=== PATIENT | female | born 1945 | race Caucasian/White ===

== ENCOUNTER 2024-07-19 07:55 | Emergency (ER) | payer MEDICARE ==
[2024-07-19 08:04] VITALS: RESP 18; TEMP 97.4
--- NOTE | 2024-07-19 08:33 | ED ---
General Adult HPI - General Chief complaint: Dizziness Stated complaint: Hypertension Time Seen by Provider: 07/19/24 08:18 Source: patient, RN notes reviewed, old records reviewed Mode of arrival: wheelchair Limitations: no limitations - History of Present Illness Initial comments: Patient is a 78-year-old female presents emergency department for lightheadedness and hypertension. States she took her blood pressure few times this morning with a wrist cuff. Twice that showed with systolics of 200. Once it showed systolic of 160. Patient states she felt lightheaded afterwards. Was up part of the night with anxiety over her dog. Presents for further evaluation at this time. No history of hypertension. History of anxiety. History of palpitations for which she is on propranolol. Also history of IBS. Denies chest pain but states she has been having intermittent chest sharp pains that last fleeting moments substernally that do not radiate. Currently no pain. No shortness of breath. Has been dealing with sinus pressure and mild headache for the last couple weeks that is unchanged from baseline. Describes her lightheadedness as a lightheaded feeling, not a room spinning sensation. Does have a history of vertigo and states this is not vertigo. States it was mild right now. Associated with upper respiratory infection which she is feeling improved regarding. Denies sore throat. Denies urinary complaints. Has no o ther acute complaints at this time. Presents over concern for the high blood pressure readings at home as well as her lightheadedness. - Related Data Previous Rx's Medication Instructions Recorded amLODIPine [Norvasc] 5 mg PO DAILY PRN 7 Days #7 tab 07/19/24 Allergies Allergy/AdvReac Type Severity Reaction Status Date / Time hydroxyzine [From Atarax] Allergy Unknown Verified 07/19/24 08:04 Iodinated Contrast Media Allergy Anaphylaxis Verified 07/19/24 08:04 Review of Systems ROS Statement: Those systems with pertinent positive or pertinent negative responses have been documented in the HPI. Review of Systems: CONST: Denies fever EYES: Denies blurry vision ENT: Denies nasal congestion C/V: Denies Chest pain RESP: Denies shortness of breath GI: Denies abdominal pain : Denies dysuria SKIN: Denies rash. MSK: Denies joint pain. NEURO: Endorses mild headache ROS Other: All systems not noted in ROS Statement are negative. Past Medical History Additional Past Medical History / Comment(s): episodes of racing heart beat, IBS, vertigo, History of Any Multi-Drug Resistant Organisms: None Reported Past Surgical History: No Surgical Hx Reported Past Psychological History: Anxiety Smoking Status: Former smoker Past Alcohol Use History: None Reported Past Drug Use History: None Reported General Exam - General Exam Comments Initial Comments: General: Appears in no acute distress. HEAD: Normal with no signs of head trauma. EYES: PERRLA, EOMI, conjunctiva normal, no discharge. Pupils are 2 mm and equal bilaterally. ENT: Hearing grossly intact, normal oropharynx. RESPIRATORY: Clear breath sounds bilaterally. No wheezes, rales, or rhonchi. C/V: Regular rate and rhythm. S1 and S2 auscultated, no edema, peripheral pulses 2+ and intact throughout ABD: Abd is soft, nontender, nondistended EXT: Normal range of motion, no obvious deformity SKIN: No rashes or lesions observed on exposed skin. NEURO: Alert and oriented x 4. NIH of 0. GCS 15. No focal neurological deficits. Normal cerebellar function as evidenced by normal [id number] testing, normal aimg-kn-klyi testing, absence of dysdiadochokinesia. Limitations: no limitations Course Vital Signs 07/19/24 07/19/24 08:00 08:16 Temperature 97.4 F L Pulse Rate 63 60 Respiratory 18 18 Rate Blood Pressure 162/72 149/70 O2 Sat by Pulse 100 99 Oximetry Medical Decision Making - Medical Decision Making Was pt. sent in by a medical professional or institution ([facility], PHYTOPATHOLOGY TEACHER, urgent care, hospital, or halfway...) When possible be specific @ -No Did you speak to anyone other than the patient for history (EMS, parent, family, police, friend...)? What history was obtained from this source @ -No Did you review nursing and triage notes (agree or disagree)? Why? @ -I reviewed and agree with nursing and triage notes Were old charts reviewed (outside hosp., previous admission, EMS record, old E KG, old radiological studies, urgent care reports/EKG's, halfway records)? Report findings @ -No old charts were reviewed Differential Diagnosis (chest pain, altered mental status, abdominal pain women, abdominal pain men, vaginal bleeding, weakness, fever, dyspnea, syncope, headache, dizziness, GI bleed, back pain, seizure, CVA, palpatations, mental health, musculoskeletal)? @ -Hypertension, anxiety, dehydration, viral syndrome, vertigo. This list is not all inclusive. EKG interpreted by me (3pts min.). @ -As above X-rays interpreted by me (1pt min.). @ -Chest x-ray reveals no obvious acute cardiopulmonary process. CT interpreted by me (1pt min.). @ -None done U/S interpreted by me (1pt. min.). @ -None done What testing was considered but not performed or refused? (CT, X-rays, U/S, labs)? Why? @ -None What meds were considered but not given or refused? Why? @ -None Did you discuss the management of the patient with other professionals (professionals i.e. , PA, PHYTOPATHOLOGY TEACHER, lab, RT, psych nurse, social work supervisor, emery wheel worker, teacher, radio electronics officer, rn field case manager)? Give summary @ -No Was smoking cessation discussed for >3mins.? @ -No Was critical care preformed (if so, how long)? @ -No Were there social determinants of health that impacted care today? How? (Homelessness, low income, unemployed, alcoholism, drug addiction, transportation, low edu. Level, literacy, decrease access to med. care, retirement, rehab)? @ -No Was there de-escalation of care discussed even if they declined (Discuss DNR or withdrawal of care, Hospice)? DNR status @ -No What co-morbidities impacted this encounter? (DM, HTN, Smoking, COPD, CAD, Cancer, CVA, ARF, Chemo, Hep., AIDS, mental health diagnosis, sleep apnea, morbid obesity)? @ -None Was patient admitted / discharged? Hospital course, mention meds given and route, prescriptions, significant lab abnormalities, going to OR and other pert inent info. @ -Based on patient's presentation and physical exam, presents with high blood pressure reading at home. She does use a wrist cuff which is less accurate and blood pressure readings here are within acceptable limits. Systolic slightly elevated. She has been having intermittent chest discomfort as well as viral syndrome symptoms for weeks. Discussed with the patient we will obtain a cardiac workup as well as screening for any dehydration or infection. No indication for CT brain imaging at this time as there is no injury and no neurological deficits. Does have a mild headache and she will be treated with IV Toradol as well as fluids. Patient was in agreement this plan. We did discuss the inaccuracy of the wrist blood pressure cuffs and I recommended she obtain an automatic arm blood pressure cuff. She expressed understanding. EKG shows no signs of acute ischemia. Chest x-ray unremarkable. Laboratory studies remarkable for undetectable troponin, normal urinalysis, normal TSH, normal viral swabs. I discussed results with patient. She has been monitored for multiple hours here in the department. Patient's blood pressure has over time, trended downward and improved. She is feeling improved. We discussed her workup. I believe it is safer to be discharged home. His systolic blood pressures have remained above 135 at a minimum, I do feel comfortable sending her home with a as needed antihypertensive medication, Norvasc 5 mg. Strict instructions on when to use including if systolic blood pressure is greater than 185 consistently over the course of a few blood pressure readings with the course of few hours at home. Stated that she needs to obtain an arm blood pressure cuff prior to initiating this therapy, as her wrist cuff is likely inaccurate. She was in agreement this plan. Recommend she follow-up with her PCP on Sunday. She can return to the ER if any worsening symptoms. She was in agreement this plan. Strict return precautions discussed. I will provide the patient with a prescription for amlodipine. I instructed the patient to follow up with their PCP in the next 1-3 days.. I explained that the patient should return to the emergency department if they experience any worsening symptoms. Strict return precautions were discussed with the patient. The patient expressed understanding of these instructions. I answered all questions that the patient had. The patient was discharged home in good condition with their prescriptions and follow up information. Undiagnosed new problem with uncertain prognosis? @ -No Drug Therapy requiring intensive monitoring for toxicity (Heparin, Nitro, Insulin, Cardizem)? @ -No Were any procedures done? @ -No Diagnosis/symptom? @ -Asymptomatic hypertension, anxiety Acute, or Chronic, or Acute on Chronic? @ -Acute Uncomplicated (without systemic symptoms) or Complicated (systemic symptoms)? @ -Uncomplicated Side effects of treatment? @ -None Exacerbation, Progression, or Severe Exacerbation] @ -No Poses a threat to life or bodily function? @ -Unlikely at this time - Lab Data Result diagrams: 07/19/24 08:42 07/19/24 08:42 Lab Results 07/19/24 07/19/24 07/19/24 Range/Units 08:42 08:42 08:42 WBC 5.9 (3.8-10.6) k/uL RBC 4.29 (3.80-5.40) m/uL Hgb 13.3 (11.4-16.0) gm/dL Hct 40.8 (34.0-46.0) % MCV 95.2 (80.0-100.0) fL MCH 31.1 (25.0-35.0) pg MCHC 32.7 (31.0-37.0) g/dL RDW 12.8 (11.5-15.5) % Plt Count 286 (150-450) k/uL MPV 8.8 Neutrophils % 53 % Lymphocytes % 37 % Monocytes % 6 % Eosinophils % 1 % Basophils % 0 % Neutrophils # 3.2 (1.3-7.7) k/uL Lymphocytes # 2.2 (1.0-4.8) k/uL Monocytes # 0.3 (0-1.0) k/uL Eosinophils # 0.1 (0-0.7) k/uL Basophils # 0.0 (0-0.2) k/uL Sodium 138 (137-145) mmol/L Potassium 4.2 (3.5-5.1) mmol/L Chloride 103 (98-107) mmol/L Carbon Dioxide 28 (22-30) mmol/L Anion Gap 7 mmol/L BUN 25 H (7-17) mg/dL Creatinine 0.69 (0.52-1.04) mg/dL Est GFR (CKD-EPI)AfAm >90 (>60 ml/min/1.73 sqM) Est GFR (CKD-EPI)NonAf 84 (>60 ml/min/1.73 sqM) Glucose 88 (74-99) mg/dL Calcium 9.3 (8.4-10.2) mg/dL Magnesium 1.9 (1.6-2.3) mg/dL Total Bilirubin 0.5 (0.2-1.3) mg/dL AST 25 (14-36) U/L ALT 16 (4-34) U/L Alkaline Phosphatase 49 (38-126) U/L Troponin I <0.012 (0.000-0.034) ng/mL Total Protein 6.7 (6.3-8.2) g/dL Albumin 4.0 (3.5-5.0) g/dL TSH 2.400 (0.465-4.680) mIU/L Urine Color Urine Appearance (Clear) Urine pH (5.0-8.0) Ur Specific [place] (1.001-1.035) Urine Protein (Negative) Urine Glucose (UA) (Negative) Urine Ketones (Negative) Urine Blood (Negative) Urine Nitrite (Negative) Urine Bilirubin (Negative) Urine Urobilinogen (<2.0) mg/dL Ur Leukocyte Esterase (Negative) Influenza Type A (PCR) (Not Detectd) Influenza Type B (PCR) (Not Detectd) RSV (PCR) (Not Detectd) SARS-CoV-2 (PCR) (Not Detectd) 07/19/24 07/19/24 Range/Units 08:42 09:49 WBC (3.8-10.6) k/uL RBC (3.80-5.40) m/uL Hgb (11.4-16.0) gm/dL Hct (34.0-46.0) % MCV (80.0-100.0) fL MCH (25.0-35.0) pg MCHC (31.0-37.0) g/dL RDW (11.5-15.5) % Plt Count (150-450) k/uL MPV Neutrophils % % Lymphocytes % % Monocytes % % Eosinophils % % Basophils % % Neutrophils # (1.3-7.7) k/uL Lymphocytes # (1.0-4.8) k/uL Monocytes # (0-1.0) k/uL Eosinophils # (0-0.7) k/uL Basophils # (0-0.2) k/uL Sodium (137-145) mmol/L Potassium (3.5-5.1) mmol/L Chloride (98-107) mmol/L Carbon Dioxide (22-30) mmol/L Anion Gap mmol/L BUN (7-17) mg/dL Creatinine (0.52-1.04) mg/dL Est GFR (CKD-EPI)AfAm (>60 ml/min/1.73 sqM) Est GFR (CKD-EPI)NonAf (>60 ml/min/1.73 sqM) Glucose (74-99) mg/dL Calcium (8.4-10.2) mg/dL Magnesium (1.6-2.3) mg/dL Total Bilirubin (0.2-1.3) mg/dL AST (14-36) U/L ALT (4-34) U/L Alkaline Phosphatase (38-126) U/L Troponin I (0.000-0.034) ng/mL Total Protein (6.3-8.2) g/dL Albumin (3.5-5.0) g/dL TSH (0.465-4.680) mIU/L Urine Color Colorless Urine Appearance Clear (Clear) Urine pH 5.5 (5.0-8.0) Ur Specific [place] 1.009 (1.001-1.035) Urine Protein Negative (Negative) Urine Glucose (UA) Negative (Negative) Urine Ketones Negative (Negative) Urine Blood Negative (Negative) Urine Nitrite Negative (Negative) Urine Bilirubin Negative (Negative) Urine Urobilinogen <2.0 (<2.0) mg/dL Ur Leukocyte Esterase Negative (Negative) Influenza Type A (PCR) Not Detected (Not Detectd) Influenza Type B (PCR) Not Detected (Not Detectd) RSV (PCR) Not Detected (Not Detectd) SARS-CoV-2 (PCR) Not Detected (Not Detectd) - EKG Data -: EKG Interpreted by Me EKG Comments: 12-lead Electrocardiogram Interpretation Note EKG was reviewed and interpreted by myself. 12-lead ECG performed at 0828 is interpreted by me as revealing sinus bradycardia at a rate of 58 beats per minute. [place] is normal. ME interval is 147 ms, QRS duration is 80 ms, QTc is 415 ms.. There were no ST or T wave abnormalities to suggest myocardial ischemia or injury. R wave progression across the precordium was satisfactory. By my interpretation this EKG is non-diagnostic for acute ischemia. Disposition Clinical Impression: Asymptomatic hypertension, Anxiety Disposition: HOME SELF-CARE Condition: Good Additional Instructions: Your elevated blood pressure at home may have been secondary to anxiety or possibly from a bad blood pressure cuff as you have a wrist cuff. Stop using the wrist cuff. Use an arm blood pressure cuff. Today in the ER, he did not require any blood pressure medications to treat your blood pressure, just fluids. Your workup today was unremarkable. Please obtain a arm blood pressure cuff, and continue to monitor your blood pressure at home, and I recommend taking it at the same time every day around midday. If you begin having blood pressures with the systolic blood pressure (top number) greater than 185 consistently over the course of a few hours, then please take a one-time dose of the prescribed Norvasc and call your primary care physician. Return to the ER if any worsening symptoms or concerns. Follow-up with your PCP in the next 1 to 3 days. Only take the prescribed Norvasc if blood pressure is consistently over 185 for the top number. Only take 1 dose of Norvasc (1 tablet) per day at most. Prescriptions: amLODIPine [Norvasc] 5 mg PO DAILY PRN 7 Days #7 tab PRN Reason: Hypertension Is patient prescribed a controlled substance at d/c from ED?: No Referrals: Dipti Oliver DO [Primary Care Provider] - 1-2 days Time of Disposition: 10:19
[2024-07-19] MEDS: SODIUM CHLORIDE 0.9% 1,000 ML IV STA (08:43)
[2024-07-19] MEDS: KETOROLAC 15 MG/ML 1 ML VIAL IVP STA (08:44)
--- NOTE | 2024-07-19 08:56 | XR ---
Two-view chest. CLINICAL INDICATION: Female, 78 years old with history of cough, congestion, Cough. COMPARISON: None TECHNIQUE: PA and lateral views chest obtained FINDINGS: There is no abnormal consolidative or interstitial opacity and the lungs are clear. The heart and pulmonary vasculature are normal. There is no pleural effusion or pneumothorax. The osseous structures and soft tissues unremarkable. IMPRESSION: No acute cardiopulmonary disease. [facility], , 07/19/2024 8:54 AM
[2024-07-19 09:12] LABS: ALT 16 U/L (4-34); AST 25 U/L (14-36); African American GFR (CKD) >90 (>60 ml/min/1.73 sqM); Alkaline Phosphatase 49 U/L (38-126); Anion Gap 7 mmol/L; Blood Urea Nitrogen 25 mg/dL (7-17); Calcium 9.3 mg/dL (8.4-10.2); Carbon Dioxide 28 mmol/L (22-30); Chloride 103 mmol/L (98-107); Glucose 88 mg/dL (74-99); Magnesium 1.9 mg/dL (1.6-2.3); Non-African American GFR(CKD) 84 (>60 ml/min/1.73 sqM); Potassium 4.2 mmol/L (3.5-5.1); Sodium 138 mmol/L (137-145); Total Bilirubin 0.5 mg/dL (0.2-1.3); Total Protein 6.7 g/dL (6.3-8.2)
[2024-07-19 09:17] LABS: Basophils % (A) 0 %; Eosinophils # (A) 0.1 k/uL (0-0.7); Eosinophils % (A) 1 %; HCT 40.8 % (34.0-46.0); HGB 13.3 gm/dL (11.4-16.0); Lymphocytes # (A) 2.2 k/uL (1.0-4.8); Lymphocytes % (A) 37 %; MCH 31.1 pg (25.0-35.0); MCHC 32.7 g/dL (31.0-37.0); MCV 95.2 fL (80.0-100.0); Mean Platelet Volume 8.8; Monocytes # (A) 0.3 k/uL (0-1.0); Monocytes % (A) 6 %; Neutrophils # (A) 3.2 k/uL (1.3-7.7); Neutrophils % (A) 53 %; Platelet Count 286 k/uL (150-450); RBC 4.29 m/uL (3.80-5.40); RDW 12.8 % (11.5-15.5); WBC 5.9 k/uL (3.8-10.6)
[2024-07-19] MEDS: SODIUM CHLORIDE 0.9% 500 ML 500 ML IV ONE (09:37)
[2024-07-19 09:38] LABS: Influenza A Not Detected (Not Detectd); Influenza B Not Detected (Not Detectd); RSV Not Detected (Not Detectd)
[2024-07-19 10:01] LABS: Appearance,Urine Clear (Clear); Bilirubin,Urine Negative (Negative); Blood,Urine Negative (Negative); Color,Urine Colorless; Glucose,Urine (UA) Negative (Negative); Ketones,Urine Negative (Negative); Leukocyte Esterase,Urine Negative (Negative); Nitrite,Urine Negative (Negative); PH, Urine 5.5 (5.0-8.0); Protein,Urine Negative (Negative); Specific Gravity,Urine 1.009 (1.001-1.035); Urobilinogen,Urine <2.0 mg/dL (<2.0)
[2024-07-19 10:28] VITALS: BP 136/70; PULSE 61
== END 2024-07-19 10:29 | disposition home or self-care (01) ==
LOC: EC 07:55
DX: I10 Essential (primary) hypertension (principal); F41.9 Anxiety disorder, unspecified; R00.1 Bradycardia, unspecified; Z87.891 Personal history of nicotine dependence
CPT/HCPCS: 36415; 93005; 80053; 83735; 84443; 84484; 85025; 81003; 87636; 71046; 99284; 96374; 96361 ×2; J1885